=== PATIENT | male | born 2000 | race Caucasian/White ===

== ENCOUNTER 2018-10-09 21:40 | Emergency (ER) | payer MEDICAID ==
[~2018-10-09] VITALS: Ht 170.2 cm; Wt 87.5 kg
[2018-10-09 21:58] VITALS: BP 159/60
--- NOTE | 2018-10-09 22:23 | NUR ---
TO ER BED 1
--- NOTE | 2018-10-09 22:26 | NUR ---
C/O L LOWER DENTAL PAIN, WORSENING X3 DAYS. S/P BL LOWER WISDOM TEETH EXTRACTION 3 WEEKS AGO. WENT TO PT'S DENTIST TODAY WHO REFUSED TO PRESCRIBE STRONGER PAIN MED. OTC IBUPROFEN 2 HRS AGO WITHOUT RELIEF.
--- NOTE | 2018-10-09 23:19 | NUR ---
Patient discharged with v/s stable. Written and verbal after care instructions given and explained. Patient alert, oriented and verbalized understanding of instructions. Ambulatory with steady gait. All questions addressed prior to discharge. ID band removed. Patient advised to follow up with PMD. Rx of NAPROSYN, NORCO, AMOXICILLIN given. Patient educated on indication of medication including possible reaction and side effects. Opportunity to ask questions provided and answered.
[2018-10-09 23:20] VITALS: BP 159/60
== END 2018-10-09 23:20 | disposition home or self-care (01) ==
LOC: MED 21:40
DX: K08.89 Other specified disorders of teeth and supporting structures (principal); Z98.890 Other specified postprocedural states
CPT/HCPCS: 99283

== ENCOUNTER 2019-01-09 08:38 | Emergency (ER) | payer BC, MEDICAID ==
[~2019-01-09] VITALS: Ht 170.2 cm; Wt 80.7 kg
[2019-01-09 08:41] VITALS: BP 137/83
--- NOTE | 2019-01-09 08:45 | NUR ---
C/O BILAT WRIST PAIN 5/10 "SORE" STARTING YESTERDAY AFTER PT TRIPPED ON A SIDEWALK CURB AND CAUGHT HIMSELF WITH BOTH HANDS. NO OBVIOUS DEFORMITY, SWELLING, REDNESS NOTED. FULL ROM PRESENT, CAP REFIL <3 SEC, +2 BUE PULSES. PT REPORTS VERY MILD NUMBNESS/TINGLING. PT REPORTS HAVING AN INTERNAL FIXATION DONE TO L WRIST IN 2016. BED IN LOW POSITION, SIDE RAIL UP X1.
--- NOTE | 2019-01-09 08:47 | NUR ---
PT AMB TO BED 4 WITH STEADY GAIT
[2019-01-09] MEDS ORDERED: IBUPROFEN 800 MG TAB PO ONE (08:55)
--- NOTE | 2019-01-09 09:01 | NUR ---
pt left to xray
--- NOTE | 2019-01-09 09:19 | NUR ---
Patient returned from XRAY. RN re-evaluating the patient at bedside.
--- NOTE | 2019-01-09 09:53 | NUR ---
Dr. Manning re-evaluating patient at bedside.
[2019-01-09 10:04] VITALS: BP 137/83
== END 2019-01-09 10:08 | disposition home or self-care (01) ==
LOC: MED 08:38
DX: S62.002A Unspecified fracture of navicular [scaphoid] bone of left wrist, initial encounter for closed fracture (principal); S63.501A Unspecified sprain of right wrist, initial encounter; Z98.890 Other specified postprocedural states; W19.XXXA Unspecified fall, initial encounter; Y93.89 Activity, other specified; Y92.89 Other specified places as the place of occurrence of the external cause; Y99.8 Other external cause status
CPT/HCPCS: 73110; 73130; 99283